=== PATIENT | male | born 1985 | race American Indian/Alaskan Native ===

== ENCOUNTER 2019-03-23 04:03 | Emergency (ER) | payer OTHER ==
--- NOTE | 2019-03-23 04:38 | Emergency Department Report ---
ED Male HPI - General Chief complaint: Urogenital-Male Stated complaint: PAINFUL URINATION Time Seen by Provider: 03/23/19 04:25 Source: patient Mode of arrival: Ambulatory Limitations: No Limitations - History of Present Illness Initial comments: Patient is a 33-year-old -[place] male who presents for penile discharge white was dysuria frequency urgency there is no hematuria no fever no chills no nausea vomiting. symptoms are exacerbated by voiding pt states MD Complaint: penile discharge, dysuria Onset/Timin -: days(s) Location: penis Radiation: none Severity: Unable to Determine Severity scale (0 -10): 3 Quality: aching Consistency: constant Improves with: none Worsens with: urination denies: rash - Related Data Sexually active: Yes Previous Rx's Medication Instructions Recorded Last Taken Type Ciprofloxacin HCl [Ciprofloxacin 500 mg PO Q12H #14 tab 05/04/15 Unknown Rx TAB] DOXYCYCLINE Hyclate [Vibramycin 100 mg PO Q12HR #20 capsule 05/04/15 Unknown Rx CAP] Ibuprofen [Motrin] 800 mg PO Q8HR PRN #30 tablet 05/04/15 Unknown Rx traMADol [Ultram] 50 mg PO Q6HR PRN #14 tablet 05/04/15 Unknown Rx Doxycycline Hyclate [Doxycycline 100 mg PO BID 10 Days #20 tab 03/23/19 Unknown Rx Hyclate TAB] Allergies Allergy/AdvReac Type Severity Reaction Status Date / Time No Known Allergies Allergy Verified 05/04/15 09:33 ED Review of Systems ROS: Stated complaint: PAINFUL URINATION Other details as noted in HPI Constitutional: denies: chills, fever Eyes: denies: eye pain, eye discharge, vision change ENT: denies: ear pain, throat pain Respiratory: denies: cough, shortness of breath, wheezing Cardiovascular: denies: chest pain, palpitations Endocrine: no symptoms reported Gastrointestinal: denies: abdominal pain, nausea, diarrhea, constipation, hematemesis, hematochezia Genitourinary: as per HPI Musculoskeletal: denies: back pain, joint swelling, arthralgia Skin: as per HPI Neurological: denies: headache, weakness, paresthesias Psychiatric: as per HPI Hematological/Lymphatic: denies: easy bleeding, easy bruising ED Past Medical Hx - Past Medical History Previous Medical History?: No - Surgical History Past Surgical History?: No - Social History Smoking Status: Current Every Day Smoker Substance Use Type: Alcohol - Medications Home Medications: Home Medications Medication Instructions Recorded Confirmed Last Taken Type Ciprofloxacin HCl [Ciprofloxacin 500 mg PO Q12H #14 tab 05/04/15 Unknown Rx TAB] DOXYCYCLINE Hyclate [Vibramycin 100 mg PO Q12HR #20 capsule 05/04/15 Unknown Rx CAP] Ibuprofen [Motrin] 800 mg PO Q8HR PRN #30 tablet 05/04/15 Unknown Rx traMADol [Ultram] 50 mg PO Q6HR PRN #14 tablet 05/04/15 Unknown Rx Doxycycline Hyclate [Doxycycline 100 mg PO BID 10 Days #20 tab 03/23/19 Unknown Rx Hyclate TAB] ED Physical Exam - General Limitations: No Limitations General appearance: alert, in no apparent distress - Head Head exam: Present: atraumatic, normocephalic - Eye Eye exam: Present: normal appearance - ENT ENT exam: Present: mucous membranes moist - Neck Neck exam: Present: normal inspection, full ROM. Absent: lymphadenopathy - Respiratory Respiratory exam: Present: normal lung sounds bilaterally. Absent: respiratory distress, wheezes, rhonchi, stridor - Cardiovascular Cardiovascular Exam: Present: regular rate, normal rhythm. Absent: systolic murmur, diastolic murmur, rubs, gallop - GI/Abdominal GI/Abdominal exam: Present: soft, normal bowel sounds - Rectal Rectal exam: Present: deferred - Extremities Exam Extremities exam: Present: normal inspection - Back Exam Back exam: Present: normal inspection, full ROM. Absent: tenderness, CVA tenderness (R), CVA tenderness (L), muscle spasm, paraspinal tenderness, rash noted - Neurological Exam Neurological exam: Present: alert, oriented X3 - Psychiatric Psychiatric exam: Present: normal affect, normal mood - Skin Skin exam: Present: warm, dry, intact, normal color. Absent: rash ED Course Vital Signs 03/23/19 04:11 Temperature 99.3 F Pulse Rate 76 Respiratory 20 Rate Blood Pressure 123/78 O2 Sat by Pulse 99 Oximetry ED Medical Decision Making - Lab Data Lab Results 03/23/19 Range/Units Unknown Urine Color Yellow (Yellow) Urine Turbidity Slightly-cloudy (Clear) Urine pH 5.0 (5.0-7.0) Ur Specific [place] 1.025 (1.003-1.030) Urine Protein <15 mg/dl (Negative) mg/dL Urine Glucose (UA) Neg (Negative) mg/dL Urine Ketones Neg (Negative) mg/dL Urine Blood Neg (Negative) Urine Nitrite Neg (Negative) Urine Bilirubin Neg (Negative) Urine Urobilinogen < 2.0 (<2.0) mg/dL Ur Leukocyte Esterase Mod (Negative) Urine WBC (Auto) 176.0 H (0.0-6.0) /HPF Urine RBC (Auto) 6.0 (0.0-6.0) /HPF Urine Mucus Few /HPF - Medical Decision Making this is a STD plan tree duff , dc to home with rx for doxycycline po follow up with health department for HIV and HSV screening. Critical care attestation.: If time is entered above; I have spent that time in minutes in the direct care of this critically ill patient, excluding procedure time. ED Disposition Clinical Impression: STD (sexually transmitted disease) Disposition: DC-01 TO HOME OR SELFCARE Is pt being admited?: No Does the pt Need Aspirin: No Condition: Stable Instructions: Sexually Transmitted Diseases (ED) Prescriptions: Doxycycline Hyclate [Doxycycline Hyclate TAB] 100 mg PO BID 10 Days #20 tab Referrals: ETHAN ALEXANDER MD [Primary Care Provider] - 3-5 Days Forms: Work/School Release Form(ED) Time of Disposition: 06:23
[2019-03-23 05:13] LABS: Bilirubin,Urine NEG (Negative); Blood,Urine NEG (Negative); Color,Urine Yellow (Yellow); Mucus,Urine FEW /HPF; Protein,Urine <15 mg/dL mg/dL (Negative); Urobilinogen,Urine < 2.0 mg/dL (<2.0)
[2019-03-23] MEDS ORDERED: LIDOCAINE-MPF (1%) 10 MG/1 ML VIAL 5 ML INFILTRATI ONE (05:36)
[2019-03-23] MEDS ORDERED: AZITHROMYCIN 250 MG TAB PO ONE (05:36)
[2019-03-23 07:06] VITALS: BP 115/65
== END 2019-03-23 07:02 | disposition home or self-care (01) ==
LOC: ED 04:03
DX: A64 Unspecified sexually transmitted disease (principal); F17.200 Nicotine dependence, unspecified, uncomplicated
CPT/HCPCS: 81001; 96372; 99283; J0696

== ENCOUNTER 2020-05-29 19:24 | Emergency (ER) | payer OTHER ==
[2020-05-29] MEDS ORDERED: DIPHtheria,PERTUSSIS(ACELL),TETANUS VACCINE/PF 0.5 ML VIAL IM ONE (20:53)
[2020-05-29 20:55] VITALS: BP 148/85
--- NOTE | 2020-05-29 20:55 | Emergency Department Report ---
ED Laceration HPI - HPI Stated Complaint: ABOVE EYE LAC Time Seen by Provider: 05/29/20 20:50 Occurred When: Yesterday Tetanus Status: Not up to Date Laceration Symptoms: Yes Pain, No Foreign Body Sensation, No Numbness, No Weakness Other History: 35-year-old -Citizen Of [place] male presents to the emergency room for a cut to his left eyebrow last night. Patient states that he hit his eyebrow on a door. Patient is unknown aware of his tetanus status. Patient denies any allergies to meds. ED Review of Systems ROS: Stated complaint: ABOVE EYE LAC Other details as noted in HPI Comment: All other systems reviewed and negative ED Past Medical Hx - Social History Smoking Status: Current Every Day Smoker Substance Use Type: Alcohol - Medications Home Medications: Home Medications Medication Instructions Recorded Confirmed Last Taken Type Ciprofloxacin HCl [Ciprofloxacin 500 mg PO Q12H #14 tab 05/04/15 Unknown Rx TAB] DOXYCYCLINE Hyclate [Vibramycin 100 mg PO Q12HR #20 capsule 05/04/15 Unknown Rx CAP] Ibuprofen [Motrin] 800 mg PO Q8HR PRN #30 tablet 05/04/15 Unknown Rx traMADoL [Ultram] 50 mg PO Q6HR PRN #14 tablet 05/04/15 Unknown Rx Doxycycline Hyclate [Doxycycline 100 mg PO BID 10 Days #20 tab 03/23/19 Unknown Rx Hyclate TAB] cephALEXin [Keflex] 500 mg PO Q8HR 10 Days #30 cap 05/29/20 Unknown Rx Laceration Physical Exam - Exam General: Vital signs noted. No distress. Alert and acting appropriately. Wound Length (cm): 2 Laceration Location: Other (Left eyebrow corner) Laceration Exam: Yes Normal Distal CMS, No Foreign Body, No Exposed Tendon, Vessel, or Nerve, No Tendon Injury ED Medical Decision Making - Medical Decision Making 35-year-old -Citizen Of [place] male presents to the emergency room for a cut to his left eyebrow last night. Patient states that he hit his eyebrow on a door. Patient is unknown aware of his tetanus status. Patient denies any allergies to meds. Patient has been laceration next been greater than 16 hours. Patient will be given a tetanus shot wound clean patient be placed on antibiotics. Discussed with patient were not able to suture or repair laceration secondary to timeframe of wound being open. Critical care attestation.: If time is entered above; I have spent that time in minutes in the direct care of this critically ill patient, excluding procedure time. ED Disposition Clinical Impression: Laceration of left eyebrow Qualifiers: Encounter type: initial encounter Qualified Code(s): S01.112A - Laceration without foreign body of left eyelid and periocular area, initial encounter Disposition: DC- TO HOME OR SELFCARE Is pt being admited?: No Does the pt Need Aspirin: No Condition: Stable Additional Instructions: Complete antibiotics as prescribed. Change bandage daily. Tylenol or ibuprofen as needed for pain. Your wound is not being repaired secondary to too much time has elapsed for open wound. Prescriptions: cephALEXin [Keflex] 500 mg PO Q8HR 10 Days #30 cap Referrals: [facility] [Provider Group] - 3-5 Days Forms: Work/School Release Form(ED)
== END 2020-05-29 21:48 | disposition home or self-care (01) ==
LOC: ED 19:24
DX: S01.112A Laceration without foreign body of left eyelid and periocular area, initial encounter (principal); F17.200 Nicotine dependence, unspecified, uncomplicated; Z79.2 Long term (current) use of antibiotics; Z79.899 Other long term (current) drug therapy; W45.8XXA Other foreign body or object entering through skin, initial encounter; Y93.89 Activity, other specified; Y92.89 Other specified places as the place of occurrence of the external cause; Y99.8 Other external cause status
CPT/HCPCS: 90471; 90715; 99282